=== PATIENT | female | born 1945 | race Caucasian/White ===

== ENCOUNTER 2023-09-27 11:54 | Outpatient (CLI) | payer MEDICARE, SELFPAY ==
--- NOTE | ~2023-09-27 | XR_ITS ---
EXAMINATION: XR thoracic spine 2V DATE: 09/27/2023 12:29 INDICATION: Thoracic back pain TECHNIQUE: AP, lateral and lateral swimmer's views of the thoracic spine were obtained. COMPARISON: None. FINDINGS: Bone alignment is normal. There is no fracture. The vertebral body heights are maintained. There is mild loss of intervertebral disc space height at multiple levels in the mid and upper thorac ic spine. The lungs are hyperinflated. IMPRESSION: 1. Mild thoracic spondylosis without acute findings. Reviewed, dictated and finalized at location F. HT CLERK
--- NOTE | ~2023-09-27 | XR_ITS ---
EXAMINATION: XR lumbar spine 2-3V DATE: 09/27/2023 12:28 INDICATION: Low back pain TECHNIQUE: Anteroposterior and lateral views of the lumbar spine, and cone-down lateral view of the l umbosacral junction were obtained. COMPARISON: 12/01/2011 FINDINGS: There is an age-indeterminate compression fracture of L2 with approximately 40% loss of ant erior vertebral body height. The remaining lumbar vertebral body heights are normal. There is mild lo ss of intervertebral disc space height at L4-5 and L5-S1. Bone alignment is normal. Surgical clips in the right upper quadrant are likely from prior cholecystectomy. IMPRESSION: 1. Age-indeterminate L2 compression fracture. Reviewed, dictated and finalized at location F. OL ATTENDANCE SECRETARY
--- NOTE | ~2023-09-27 | XR_ITS ---
XR chest 2V 09/27/2023 12:28 Indication: History of COPD. Shortness of breath. Procedure: 2 view chest Comparison: No prior studies for comparison. Findings: There are pulmonary nodules in the upper lobes. The lungs are hyperinflated which is consis tent with, but not diagnostic of chronic obstructive pulmonary disease. Heart size normal. No signifi cant effusion or pneumothorax. No focal pneumonia. Impression: 1: Bilateral upper lobe pulmonary nodules. Follow-up CT chest recommended. Reviewed, dictated and finalized at location L. NT ENGINEER Impression: 1: Bilateral upper lobe pulmonary nodules. Follow-up CT chest recommended.
== END 2023-09-27 11:55 | disposition home or self-care (01) ==
PROVIDERS: PCP Nurse Practitioner Adult Health; Visit Provider Nurse Practitioner Adult Health
DX: J44.9 Chronic obstructive pulmonary disease, unspecified (principal); M54.9 Dorsalgia, unspecified; M47.894 Other spondylosis, thoracic region; R91.8 Other nonspecific abnormal finding of lung field
CPT/HCPCS: 71046; 72070; 72100

== ENCOUNTER 2023-10-13 11:20 | Observation (INO) | payer MEDICARE, SELFPAY ==
[2023-10-13] VITALS (47 sets, daily range): BP systolic 106–133; BP diastolic 56–81; PULSE 82–98; RESP 17–39; TEMP 34.8; O2SAT 88–100
--- NOTE | ~2023-10-13 | CT_ITS ---
EXAMINATION: CTA chest PE abdomen pel DATE: 10/13/2023 13:41 INDICATION: Malignancy. Fall. Weakness. TECHNIQUE: Computed tomography (CT) pulmonary angiogram of the chest was performed with 100 mL Omnipa que-350 intravenous contrast. Additional 3D reconstructions utilizing coronal maximum intensity proje ction (MIP) were performed. CT of the abdomen and pelvis was performed with intravenous contrast util izing the same contrast bolus following a short delay. Automated exposure control and iterative recon struction technique were employed. The dose-length product was 326.15 mGy-cm. COMPARISON: None FINDINGS: Chest: Excellent contrast opacification of the pulmonary arteries. There is mild streak artifact from dense contrast in the superior vena cava and right atrium. Minimal scattered respiratory motion artifact wh ich does not significantly limit evaluation. No pulmonary embolism. Severe upper lung predominant emp hysema. There are several calcified or centrally calcified bilateral pulmonary nodules consistent wit h old granulomatous disease. 4 mm noncalcified right apical nodule. No pneumonia, pulmonary edema, pl eural effusion or pneumothorax. Heart size is normal. No pericardial effusion. Small amount of aortic valve calcifications. Thoracic aorta is normal in caliber. There is enlargement of the central pulmo nary arteries consistent with pulmonary arterial hypertension. No pathologically enlarged thoracic ly mphadenopathy. Mild thoracic spondylosis. Abdomen/pelvis: Sarcopenia with some interval decrease in diffuse muscular bulk and more significant decrease in the amount of subcutaneous and deeper visceral fat in the abdomen, pelvis and proximal thighs. There are 4 nonobstructing stones in the left kidney the largest at a lower pole calyx measuring 4 mm in cristina l diameter. 6 mm nonenhancing cyst in the left hepatic lobe. Cholecystectomy clips at the gallbladder fossa. Spleen, pancreas and bilateral adrenal glands are normal. Bilateral renal cysts, the largest on the left measuring 1.3 cm. No bowel obstruction. 1.5 cm calcified degenerated uterine fibroid at t he fundus of the uterus. Bladder and bilateral adnexa are unremarkable. No free intraperitoneal gas o r fluid. No pathologically enlarged abdominal or pelvic lymphadenopathy. There is calcified atheroscl erosis of the aorta and many of the other arteries. L2 burst fracture with 40% central vertebral body height loss and 3 mm retropulsion resulting in mild central canal stenosis at this level. There is r emodeling and enlargement of multiple sacral neural foramina resulting from chronic Tarlov cysts whic h appear unchanged since 2014. IMPRESSION: 1. No pulmonary embolism. 2. Severe emphysema with enlargement of the central pulmonary arteries consistent with likely seconda ry pulmonary arterial hypertension. 3. Indeterminate 4 mm right upper lobe nodule. Consider optional 1 year follow-up low-dose noncontras t chest CT . 4. No acute intra-abdominal/pelvic process. 5. Nonobstructing left nephrolithiasis. 6. Chronic degenerated uterine fibroid. Reviewed, dictated and finalized at location A. DY DEVELOPER IMPRESSION: 1. No pulmonary embolism. 2. Severe emphysema with enlargement of the central pulmonary arteries consiste nt with likely secondary pulmonary arterial hypertension. 3. Indeterminate 4 mm right upper lobe nodule. Consider optional 1 year follow- up low-dose noncontrast chest CT . 4. No acute intra-abdominal/pelvic process. 5. Nonobstructing left nephrolithiasis. 6. Chronic degenerated uterine fibroid.
--- NOTE | ~2023-10-13 | XR_ITS ---
Clinical Indication: Weakness AP and lateral views of the chest: Comparison: 09/27/2023 Findings: The lungs are clear, without evidence of focal consolidation or pleural effusion. COPD kingsley xavier present with probable left apical scarring. Cardiomediastinal silhouette is within normal limits. Bones and soft tissues are unremarkable. Impression: No acute abnormality. COPD with left apical scarring. Reviewed, dictated and finalized at location . DEVELOPMENT CONSULTANT Impression: No acute abnormality. COPD with left apical scarring.
--- NOTE | ~2023-10-13 | CT_ITS ---
EXAMINATION: CT brain wo con DATE: 10/13/2023 13:39 INDICATION: Fall and weakness TECHNIQUE: Computed tomography (CT) of the head was performed without intravenous contrast. Sagittal and coronal reconstructions were performed. The mA was adjusted according to patient size. Iterative reconstruction technique was employed. The dose-length product was 681.00 mGy-cm. COMPARISON: None FINDINGS: No fracture. Small old lacunar infarcts at the bilateral basal ganglia near the anteroinferior margin s of the thalami. Additional small old infarct in the left cerebellar hemisphere. No acute intracrani al hemorrhage, acute infarction or abnormal extra axial fluid collection. There is mild scattered whi te matter hypoattenuation consistent with chronic small vessel ischemic disease. Symmetric prominence of the sulci consistent with mild age-appropriate diffuse cerebral volume loss. Ventricles are charley l and symmetric. No mass/mass effect. Changes of bilateral intraocular lens replacement. The orbits a nd mastoid air cells are normal. Change of prior antral window procedure at the medial wall of the ri ght maxillary sinus. IMPRESSION: 1. No fracture or acute intracranial process. 2. 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 3. Age-related changes including mild diffuse on loss and mild scattered white matter hypoattenuation consistent with chronic small vessel ischemic disease. Reviewed, dictated and finalized at location A. TER MACHINE OPERATOR IMPRESSION: 1. No fracture or acute intracranial process. 2. Small old lacunar infarcts at the bilateral basal ganglia and left cerebella r hemisphere. 3. Age-related changes including mild diffuse on loss and mild scattered white matter hypoattenuation consistent with chronic small vessel ischemic disease.
--- NOTE | ~2023-10-13 | CT_ITS ---
EXAMINATION: CT cervical spine wo con DATE: 10/13/2023 13:39 INDICATION: Neck pain after fall TECHNIQUE: Computed tomography (CT) of the cervical spine was performed without intravenous contrast. The dose-length product was 110 mGy-cm. COMPARISON: CT dated 10/13/2023 FINDINGS: Vertebral body heights are maintained. Normal cervical lordosis. Odontoid process is normal . Craniovertebral junction is normal. No evidence for perched facet. There is levoscoliosis. There is moderate multilevel facet hypertrophy, most severe at C4-5 and C5-6. Mastoids are pneumatized. Crani overtebral junction is normal. Severe emphysema. Irregular shaped pleural-based soft tissue is noted at the lung apices, most likely pleural thickening/scarring. There is a 1 cm centrally calcified nodu le in the left upper lobe which extends to the pleural several first, likely chronic granulomatous di sease or sequela of previous infectious/inflammatory process. There is a small cavitary lesion in the left upper lobe with soft tissue component, image 322. IMPRESSION: 1. No acute abnormality of the cervical spine. 2: Moderate cervical spondylosis. 3: Emphysema with apical pleural thickening/scarring and left upper lobe nodules, most likely infecti ous. Recommend correlation with CTA chest dated 10/13/2023. Reviewed, dictated and finalized at location L. DEVELOPMENT ENGINEER IMPRESSION: 1. No acute abnormality of the cervical spine. 2: Moderate cervical spondylosis. 3: Emphysema with apical pleural thickening/scarring and left upper lobe nodule s, most likely infectious. Recommend correlation with CTA chest dated 3.
--- NOTE | 2023-10-13 11:35 | ECG_ITS ---
Measurements Intervals Muir Rate: 87 P: 83 ME: 109 QRS: -18 QRSD: 96 T: -38 QT: 377 QTc: 455 Interpretive Statements SINUS RHYTHM WITH SHORT ME INTERVAL LOW QRS VOLTAGE IN EXTREMITY LEADS [QRS DEFLECTION < 0.5 mV IN LIMB LEADS] BASELINE ARTIFACT NO PREVIOUS ECG AVAILABLE FOR COMPARISON Electronically Signed On 10-13-2023 19:14:49 NETWORK SECURITY OFFICER by Meera Lizarraga M.D.
--- NOTE | 2023-10-13 11:43 | PC.NURSE ---
placed pt on 6L nasal canula because after many interventions to determine O2 sat it was reading 41%. pt has good color but is presenting with shallow abdominal breathing. cap refill within 3 seconds.
[2023-10-13 12:08] LABS: Basophils Percent Auto 0.2 % (0.2-1.2); Hematocrit 48.3 % (37.0-47.0); Hemoglobin 14.2 g/dL (12.0-15.0); Immature Granulocyte Absolute 0.11 K/mm3 (0.00-0.031); Immature Granulocyte Percent A 0.6 % (0-0.5); Lymphocytes Absolute Auto 0.52 K/mm3 (0.9-3.2); Lymphocytes Percent Auto 2.7 % (18.3-44.2); Mean Corpuscular HGB Conc 29.4 g/dl (32-36); Mean Corpuscular Hemoglobin 29.3 pg (26-34); Mean Corpuscular Volume 99.6 fl (80-100); Mean Platelet Volume 10.3 fl (7.4-10.4); Monocytes Absolute Auto 1.1 K/mm3 (0.1-0.6); Monocytes Percent Auto 5.5 % (2.6-8.5); Neutrophils Absolute Auto 17.5 K/mm3 (1.3-6.7); Platelet Count Result 315 k/mm3 (150-375); Red Blood Count 4.85 M/mm3 (4.2-5.4); Red Cell Distribution Width 14.1 % (11.5-14.5); White Blood Count 19.2 K/mm3 (4.5-10.0)
--- NOTE | 2023-10-13 12:13 | ED.WEAKNESS ---
HPI - Weakness General Chief complaint: Weakness Stated complaint: weak, AMS, N/V/D Time Seen by Provider: 10/13/23 12:12 Source: patient History of Present Illness HPI Narrative: 78 years old white female lives alone came from home by ambulance because did not answer her daughter phone call for the last 24 hours, called the mid T to go check on the patient. Patient found to laying down in her bed, in her stool, urine, looks lethargic and weak but awake, alert and oriented x4. on August 24, 2023 patient went stab leash a new family physician visit, according to the office reported that patient lives alone, history of COPD, shortness of breath, tobacco dependent, wishes not to have colonoscopy, mammogram, etc. due to advanced age, wished to continue current medicine and take comfortable and lives out her live at home history of osteoporosis losing weight down to 69 lb, does not wish to work up for weight loss. Related Data Allergies Allergy/AdvReac Type Severity Reaction Status Date / Time nitrofurantoin Allergy Unknown cp Verified 09/27/23 11:24 MOXIFLOXACIN HCL Allergy Unknown messes Uncoded 09/27/23 11:24 with wbc NITROFURANTOIN MACROCRYSTAL Allergy Unknown cp Uncoded 09/27/23 11:24 Review of Systems Review of Systems: ROS unobtainable: Yes unobtainable due to medical condition PMFSH Past Medical History Medical History (Updated 10/13/23 @ 14:22 by Philipp Hall MD) Abnormal blood oxygen level Abnormal pulse oximetry Family History Family History (Updated 04/10/19 @ 11:33 by DOCTOR UNKNOWN) Mother Family history of malignant neoplasm Other Cerebrovascular accident Family history of cardiovascular disease Family history of multiple sclerosis Hypertension Social History Social History (Updated 08/24/23 @ 14:17 by Malia Chi MA) Smoking status: Heavy tobacco smoker Tobacco type: e-cigarettes/vaping Alcohol intake: former Lack of Transportation: No Lack of Food: Never True Current Housing: I Have Housing Concerned About Future Housing: No Difficulty Paying Gas/Electric Bills: No Difficulty Paying for Meds: No Currently Unemployed: No Education: High School Diploma/GED Difficulty w/ Childcare or Family Care: No Living arrangements: alone Occupation/Education: retired Gender identity (if verbalized by the patient): Female Agree to blood products: Yes Exam Narrative: General appearance: malnourished, cachectic, severely ill looking, lethargic, 5 L nasal cannula on, dry oral cavity Skin: Normal color Head: Normocephalic, right forehead bruises Eyes: Clear conjunctiva ENT: Oropharynx normal, ears normal, nose normal Neck: Supple, nontender Chest and respiratory: diminution of air entry bilaterally, nonlabored breathing Heart: Regular rate/rhythm Abdomen: Soft, nontender, no organomegaly, quiet bowel sounds Vascular: Normal peripheral pulses, normal capillary refill. Musculoskeletal: general weak unable to move all extremities Neurologic: Alert and oriented ?3, ASSOCIATE SALES MANAGER is normal as tested, no gross motor deficit Course Reevaluation(s) Reevaluation #1: patient gradually get in and responsive compared to on arrival to the ED. Date: 10/13/23 Time: 14:26 Vital Signs Vital signs: Vital Signs Pulse Rate 91 10/13/23 11:25 Respiratory Rate 17 10/13/23 11:25 Blood Pressure 125/70 10/13/23 11:25 Temperature 34.8 C L 10/13/23 11:57 Pulse Rate 93 10/13/23 13:59 Respiratory Rate 34 H 10/13/23 13:59 Blood Pressure 111/70 10/13/23 13:45 Pulse Oximetry 100 10/13/23 13:59 Oxygen Delivery Nasal Cannula 10/13/23 11:58 Oxygen Flow Rate 5 10/13
[2023-10-13 12:25] LABS: Alanine Aminotransferase 137 U/L (6-35); Alkaline Phosphatase 133 U/L (38-126); Anion Gap 10 mmol/L (8-16); Aspartate Amino Transferase 123 U/L (14-36); Bilirubin,Total 0.7 mg/dL (0.2-1.3); Blood Urea Nitrogen 61 mg/dL (7-17); Calcium 9.4 mg/dL (8.4-10.2); Carbon Dioxide 32 mmol/L (22-30); Chloride 103 mmol/L (98-107); Estimated CRCL calculation 28 ml/min; Estimated Glomerular Filt Rate > 60; Glucose 113 mg/dL (65-110); Potassium 4.5 mmol/L (3.4-5.0); Sodium 145 mmol/L (137-145)
[2023-10-13 12:28] LABS: Hypochromasia 1+ (NORMAL); Platelet Estimate Adequate (Adequate); Schistocytes None Seen (NORMAL)
[2023-10-13 12:43] LABS: Appearance Urine Clear (Clear); Bacteria Urine None Seen /hpf; Bilirubin Urine Negative (Negative); Blood Urine 3+ (Negative); Color Urine Dark Yellow (Yellow); Glucose Urine UA Negative (Negative); Hyaline Casts Urine Present /lpf; Ketones Urine Negative (Negative); Leukocyte Esterase Ur Negative LEU/UL (Negative); Need Manual Microscopic Reviewed; Nitrate Urine Negative (Negative); Protein Urine 1+ mg/dL (Negative); Specific Grav Ur 1.018 (1.001-1.035); Squamous Epithelial Cell Urine None seen /hpf (Few); WBC Urine 0-5 /hpf; pH Urine 5.5 (5.0-9.0)
[2023-10-13 12:46] LABS: Add Urine Microscopic? YES
[2023-10-13 13:28] LABS: Magnesium 2.4 mg/dL (1.6-2.3)
--- NOTE | 2023-10-13 13:57 | PC.NURSE ---
spoke to pt and pt daughter Michelle about pt care plan. all involved agree the pt is ready and appropriate for comfort care and they would not like any life saving measures performed. MD and RN spoke to pt bedside to answer all questions.
[2023-10-13 14:35] LABS: Influenza A QL RT-PCR Negative (Negative); Influenza B QL RT-PCR Negative (Negative); RSV RNA, RT-PCR Negative (Negative); SARS-CoV-2 RNA PCR Negative (Negative)
[2023-10-13] MEDS: SODIUM CHLORIDE 0.9% IV 1,000 ML 75 ML IV CONT (14:47)
--- NOTE | 2023-10-13 14:51 | PC.NURSE ---
patient appears to be very fatigued and does not appear to be in pain. pt will respond to painful stimuli and answers questions appropriately. notified
--- NOTE | 2023-10-13 15:06 | PM.IMHP ---
H&P: HPI History of Present Illness Date/Time: 10/13/23 15:06 Chief Complaint: AMS, Failure to thrive, comfort measures Narrative: This is a 78-year-old female patient who is being admitted to the hospital on comfort measures for altered mental status, nausea vomiting diarrhea, and failure to thrive. Patient came to the ER via EMS after her daughter could not get hold of her so a wellfare check was called and patient was found to be lethargic but oriented lying in a pool of urine and stool. Patient has a known history of end stage COPD tobacco dependency and severe weight loss as well as osteoporosis. Her weight was down to 68 lb but she did not want further workup for the weight loss. ER was able to contact patient's daughter who stated the same as patient stated that they wanted comfort care only. The daughter reported she was getting on a plane tonight. By the time my evaluation patient was unconscious not responding to loud voice. Further invasive care has been discontinued including lab draws, IV fluids, further testing or treatments. Patient does have available pain and anxiety medicine if it becomes necessary. Her oxygen is at 2 liters/minute for comfort. Review of Systems Review of Systems: ROS unobtainable: Yes unobtainable due to medical condition and unobtainable due to mental status PMFSH Past Medical History Medical History Abnormal blood oxygen level Abnormal pulse oximetry Family History Family History Mother Family history of malignant neoplasm Other Cerebrovascular accident Family history of cardiovascular disease Family history of multiple sclerosis Hypertension Social History Social History Smoking status: Heavy tobacco smoker Tobacco type: e-cigarettes/vaping Alcohol intake: former Lack of Transportation: No Lack of Food: Never True Current Housing: I Have Housing Concerned About Future Housing: No Difficulty Paying Gas/Electric Bills: No Difficulty Paying for Meds: No Currently Unemployed: No Education: High School Diploma/GED Difficulty w/ Childcare or Family Care: No Living arrangements: alone Occupation/Education: retired Gender identity (if verbalized by the patient): Female Agree to blood products: Yes Meds Home Medications and Allergies Home Medications Medication Instructions Recorded Confirmed Type atorvastatin 10 mg tablet 10 mg PO DAILY #90 tabs 08/24/23 09/27/23 Rx gabapentin 300 mg capsule 300 mg PO QHS #90 caps 08/24/23 09/27/23 Rx ibandronate 150 mg tablet 150 mg PO MONTHLY #3 tabs 08/24/23 09/27/23 Rx fluticasone 250 mcg-salmeterol 50 1 inh inhalation BID #60 ea 08/29/23 09/27/23 Rx mcg/dose blistr powdr for inhalation (Wixela Inhub) albuterol sulfate 90 mcg/actuation 1 inh inhalation Q4-6H PRN 08/30/23 09/27/23 Rx aerosol inhaler (Ventolin HFA) shortness of breath or wheezing #8.5 grams albuterol sulfate 1.25 mg/3 mL 1.25 mg (3 mL) inhalation Q4-6H 09/27/23 09/27/23 Rx solution for nebulization PRN bronchospasm #90 mL methylprednisolone 4 mg tablets in See Rx Instructions PO PER PKG DIR 09/27/23 09/27/23 Rx a dose pack (Medrol ([place])) #21 ea nebulizers (Aeroneb Go Nebulizer) #1 ea 09/27/23 09/27/23 Rx Allergies Allergy/AdvReac Type Severity Reaction Status Date / Time nitrofurantoin Allergy Unknown cp Verified 09/27/23 11:24 MOXIFLOXACIN HCL Allergy Unknown messes Uncoded 09/27/23 11:24 with wbc NITROFURANTOIN MACROCRYSTAL Allergy Unknown cp Uncoded 09/27/23 11:24 Vital Signs Vital Signs - 24 hr 10/13/23 11:25 10/13/23 11:57 10/13/23 11:58 Temperature 34.8 C L Pulse Rate 91 89 Respiratory Rate 17 23 H Blood Pressure 125/70 133/81 Pulse Oximetry 99 96 Oxygen Delivery Nasal Cannula Oxygen Flow Rate 5 10/13/23 13
--- NOTE | 2023-10-13 20:23 | PC.NURSE ---
pt arrived to unit from ED on stretcher, pt unresponsive to touch, voice, and painful stimuli. unable to complete admission at this time as patients daughter is on flight here. will complete admission upon daughters arrival here.
[2023-10-14] MEDS: LORazepam INJ (*CRX) 2 MG/ML VIAL 1 MG IV PUSH (02:01)
[2023-10-14 02:09] VITALS: BMI 12.7
--- NOTE | 2023-10-14 12:34 | P.DN_ITS ---
Discharge Summary Date and Time Date of : 10/14/23 Time of : 02:25 Provider Pronounced By: Steffen Cavazos Probable Cause of Probable Cause of : End stage COPD Summary Hospital Course: This is a 78-year-old female patient with end-stage COPD brought in by EMS after a welfare check. Patient was initially alert and oriented informed at the ER doctor that she wanted to be comfort measures only. Daughter was contacted and in agreement with this plan of action. Patient had recently established with a primary care provider within our system and there were very clear notes in the chart indicating that patient would not want any additional evaluation or treatment for her terminal condition. Additional Data Confirmation of as documented by pronouncing clinician: Pupillary Reflex, Palpable Pulses, Response to Stimuli, Heart Tones and Breath Sounds Name of Provider Notified: Claudette Time Provider Notified: 02:50 Was code activated?: No Provider Requests Autopsy: No Non Destructive Testing Technician Notified: Yes Date [facility] Notified of : 10/14/23 Time [facility] Notified of : 02:42 Advance directives: Yes Hospice patient?: No
== END 2023-10-14 03:57 | disposition expired ==
LOC: ANHED 14:22 → ANH3MEDSUR 14:49
PROVIDERS: Emergency Medicine; Admitting Provider Internal Medicine; Emergency Provider Emergency Medicine; PCP Nurse Practitioner Adult Health; Visit Provider Internal Medicine
DX: J44.9 Chronic obstructive pulmonary disease, unspecified (principal); Z51.5 Encounter for palliative care; R62.7 Adult failure to thrive; Z68.1 Body mass index [BMI] 19.9 or less, adult; R41.82 Altered mental status, unspecified; R11.2 Nausea with vomiting, unspecified; R19.7 Diarrhea, unspecified; J96.21 Acute and chronic respiratory failure with hypoxia; R74.01 Elevation of levels of liver transaminase levels; D72.829 Elevated white blood cell count, unspecified; I45.6 Pre-excitation syndrome; R90.82 White matter disease, unspecified; M81.0 Age-related osteoporosis without current pathological fracture; R91.1 Solitary pulmonary nodule; M47.812 Spondylosis without myelopathy or radiculopathy, cervical region; N20.0 Calculus of kidney; D25.9 Leiomyoma of uterus, unspecified; Z66 Do not resuscitate; Z86.73 Personal history of transient ischemic attack (TIA), and cerebral infarction without residual deficits; F17.290 Nicotine dependence, other tobacco product, uncomplicated; Z79.51 Long term (current) use of inhaled steroids; Z79.52 Long term (current) use of systemic steroids; Z79.899 Other long term (current) drug therapy
CPT/HCPCS: 36415; 70450; 71046; 71275; 72125; 74177; 80053; 81001; 83735; 85025; 87637; 93005; 96374; 99285; G0378; J2060; J7030; Q9967